=== PATIENT | female | born 1985 | race Caucasian/White ===

== ENCOUNTER 2018-08-02 16:56 | Day surgery (SDC) | payer OTHER ==
[2018-08-02 17:29] VITALS: BMI 32.1
[2018-08-02 17:31] VITALS: BP 108/72; TEMP 98.7
[2018-08-02] MEDS ORDERED: Lactated Ringer's 1,000 ML IV SCH (17:45)
--- NOTE | 2018-08-02 19:07 | PDOC.LDPN ---
Labor & Delivery Progress Note - Subjective Subjective: other (Pt sent from clinic for eval due to concern for possible decels on doppler and discontinuous NST with possible decels to 100 ) - Objective Vital signs reviewed and normal: yes General: NAD Uterine fundus: non tender Dilation: 1 Effacement: 25% Station: -3 FHT: category 1 (110s, mod ye, +accels, no decels ) [place] contractions every: occasional ctx - Assessment (1) 37 weeks gestation of Code(s): Z3A.37 - 37 WEEKS GESTATION OF Current Visit: Yes Status : Acute -: FHTs cat 1 tracing on extended evaluation and BPP 07/05. Reassurance given. Reviewed FKCs. RTC for scheduled appt 1 week.
--- NOTE | 2018-08-02 20:00 | ULT ---
BIOPHYSICAL PROFILE 08/02/18 COMPARISON: None. HISTORY: Possible bradycardia that has now resolved. TECHNIQUE: Multiplanar sauceda scale and color doppler images were obtained in a transabdominal ultrasound. FINDINGS: There is an intrauterine with heart rate of 115 beats per minute. ROSALIND is 23.2 cm, which is normal. The fetus scored 8 of 8 on a biophysical profile which is normal. IMPRESSION: Normal biophysical profile. POS: [facility]
== END 2018-08-02 19:15 | disposition home or self-care (01) ==
LOC: L&D/OP 16:56
PROVIDERS: ATTEND Obstetrics & Gynecology
DX: O76 Abnormality in fetal heart rate and rhythm complicating labor and delivery (principal); Z3A.37 37 weeks gestation of pregnancy; Z79.899 Other long term (current) drug therapy
CPT/HCPCS: 76819; 96360; 96361; 99282

== ENCOUNTER 2018-08-15 20:59 | Inpatient (IN) | payer OTHER ==
--- NOTE | 2018-08-15 20:27 | PDOC.LDHP ---
Labor and Delivery H&P Chief complaint: scheduled induction HPI: 32 yo @ 39w2d by 8w2d CRL who presents for EIOL. Antepartum course benign. Pt has h/o HSV, on suppression and no sx. She also has a 5 cm left ovarian mass with benign markers, possible dermoid. Current gestational age (weeks): 39 Due date: 08/19/18 Dating criteria: first trimester ultrasound Grav: 2 Para: 1 OB History Details: 2010- term without complication, 7lb2oz Current complications: other (H/O HSV Left ovarian mass) Abnormal US findings: No Past Medical History: Denies Current medications: pre- vitamins Previous surgical history: none Allergies/Adverse Reactions: Allergies Allergy/AdvReac Type Severity Reaction Status Date / Time No Known Allergies Allergy Verified 08/02/18 17:32 Social history: none - Physical Exam Vital signs reviewed and normal: yes General: NAD Heart: RRR Lungs: nonlabored breathing Abdomen: gravid Extremeties: no edema FHT: category 1 (120s, mod ye, +accels, no decels currently. Previously baseline in 100s, however, still reactive. This was after Stadol.) [place] contractions every: q 2 min - Vaginal Exam cm dilated: 3 (cephalic; AROM blood tinged clear fluid ) Effacement: 75% Station: -2 - OB Labs Blood type: O RH: negative Antibody Screen: negative HIV: negative RPR: negative HEPSAg: negative 1 hour GCT: negative GBS: positive Urine drug screen: not done Rubella: immune Additional Labs: CF negative - Assessment 39w3d IUP Elective IOL H/O HSV, on suppression GBS+ Left ovarian mass, presumed dermoid - Plan Plan: admit to L&D, cervical ripening (s/p cytotec x1 Now s/p AROM), GBS antibiotic prophylaxis, informed consent obtained, anesthesia consult for pain management
[2018-08-15 21:36] VITALS: BMI 32.1
[2018-08-15] MEDS: Lactated Ringer's 1,000 ML IV SCH (21:45)
[2018-08-15] MEDS ORDERED: Misoprostol 200 MCG TAB PR PRN (22:04)
[2018-08-15] MEDS ORDERED: Methylergonovine 0.2 MG/ML VIAL IM PRN (22:04)
[2018-08-15] MEDS ORDERED: Ondansetron HCl/PF 4 MG/2 ML Vial IVP PRN (22:04)
[2018-08-15] MEDS ORDERED: Acetaminophen 500 MG TAB PO PRN (22:04)
[2018-08-15] MEDS ORDERED: Promethazine HCl 25 MG/ML VIAL IM PRN (22:04)
[2018-08-15] MEDS ORDERED: Lidocaine 1% (PF) 30 ML VIAL SC PRN (22:04)
[2018-08-15] MEDS ORDERED: Butorphanol Tartrate 1 MG/ML VIAL SLOW IVP PRN (22:04)
[2018-08-15] MEDS ORDERED: HYDROcodone/Acetaminophen 5/325 mg Tablet PO PRN (22:04)
[2018-08-15] MEDS ORDERED: Diphenoxylate HCl/Atropine Tablet PO PRN (22:04)
[2018-08-15] MEDS ORDERED: Carboprost 250 MCG/ML AMP IM PRN (22:04)
[2018-08-15] MEDS ORDERED: Ibuprofen 800 MG TAB PO PRN (22:04)
[2018-08-15] MEDS ORDERED: NS / Oxytocin 40 units/1000ml 1,000 ML IV PRN (22:04)
[2018-08-15 22:14] LABS: Mean Corpuscular HGB CONC 35.1 g/dL (32.0-36.0); Mean Corpuscular Hemoglobin 32.8 pg (27.0-31.0); Mean Corpuscular Volume 93.5 fL (78.0-98.0); Mean Platelet Volume 7.7 fL (7.4-10.4); Platelet Count 165 thou/uL (130-400); RBC Distribution Width 12.2 % (11.5-14.5); Red Blood Cell (RBC) Count 3.64 mill/uL (4.20-5.40); White Blood Cell (WBC) Count 6.8 thou/uL (4.8-10.8)
[2018-08-15] MEDS ORDERED: Penicillin G Potassium 5 MILL.UNITS in Sodium Chloride 0.9% 100 ML IVPB SCH (22:15)
[2018-08-15] MEDS: Misoprostol 100 MCG TAB VAG SCH (22:40)
[2018-08-15 22:54] LABS: Syphilis Antibody Nonreactive (Nonreactive); Syphilis Antibody Index 0.04 S/CO (<1.00 Non-Reactive)
[2018-08-15 23:53] LABS: HBSAg Index 0.21 S/CO (0-0.99); HIV (1/2) Antibody/Antigen Non-Reactive (NonReactive); HIV 1/2 INDEX 0.05 S/CO (<1.00); Hep B Surf Ag Non-Reactive S/CO (NonReactive)
[2018-08-16] MEDS: Misoprostol 100 MCG TAB VAG SCH ×4 (01:30→16:39)
[2018-08-16] MEDS: Penicillin G 2.5 MILL.units 2.5 MILL.UNITS in Premix Bag 1 BAG IVPB SCH ×3 (04:40→16:39)
[2018-08-16] MEDS ORDERED: NS w/ Oxytocin 10 units 500 ML IV SCH (06:00)
[2018-08-16] MEDS: Lactated Ringer's 1,000 ML IV SCH ×2 (06:31→09:08)
[2018-08-16] MEDS ORDERED: Dextrose 5%-Lactated Ringers 1,000 ML IV SCH (06:45)
[2018-08-16] MEDS ORDERED: DISCONTINUE ALL PREVIOUS NARCOTICS FS SCH (08:00)
[2018-08-16] MEDS ORDERED: Bupivacaine 0.5% 20 ML, fentaNYL Citrate/PF 400 MCG in Sodium Chloride 0.9% 72 ML EPIDURAL SCH (08:00)
[2018-08-16] MEDS ORDERED: Lactated Ringer's 500 ML IV PRN (09:07)
[2018-08-16] MEDS ORDERED: ePHEDrine/0.9% NaCl/PF SYRINGE 50 mg/10 ml SLOW IVP PRN (09:07)
[2018-08-16] MEDS ORDERED: diphenhydrAMINE 50 MG/ML VIAL IVP PRN (09:07)
[2018-08-16] MEDS ORDERED: Ondansetron HCl/PF 4 MG/2 ML Vial IVP PRN (09:07)
[2018-08-16] MEDS ORDERED: Naloxone HCl 0.4 mg/ml Vial IVP PRN ×2 (09:07)
[2018-08-16] MEDS ORDERED: Acetaminophen 325 MG TAB PO PRN (09:07)
[2018-08-16] MEDS ORDERED: Eucerin (Mineral Oil/Petrolatum,White) 30 gm Jar TOP PRN (09:07)
[2018-08-16] MEDS ORDERED: Promethazine HCl 25 MG/ML VIAL IM PRN (09:07)
[2018-08-16] MEDS ORDERED: fentaNYL Citrate/PF 400 MCG, Bupivacaine 0.5% 20 ML in Sodium Chloride 0.9% 72 ML EPIDURAL SCH (09:15)
[2018-08-16] MEDS ORDERED: Communication Order-Pharmacy FS SCH (09:15)
[2018-08-16] MEDS ORDERED: Lidocaine 1% (PF) 30 ML VIAL ONE (11:51)
[2018-08-16] MEDS ORDERED: NS / Oxytocin 40 units/1000ml 1,000 ML ONE (11:51)
--- NOTE | 2018-08-16 12:56 | PDOC.OPDEL ---
OB Operative/Delivery Note Delivery Dr/Surgeon: Inga Johnston DO Pre-Delivery Diagnosis: elective induction Procedure/Post Delivery Dx: spontaneous vaginal delivery Weeks gestation: 39 Anesthesia: epidural - Findings A Sex: male - 1 min: 9 - 5 min: 9 - Additional Findings/Plan Placenta delivered: spontaneous Repaired Obstetrical Laceration: episiotomy (2nd degree midline made due to bradycardia at delivery and need for expeditious delivery; small periclitoral laceration also repaired) Estimated blood loss: QBL 97 cc Compilations/Other Findings: Infant in CARITO position. Normal placenta Clear AF Post delivery plan: routine recovery
[2018-08-16] MEDS ORDERED: diphenhydrAMINE 25 MG CAP PO PRN (13:04)
[2018-08-16] MEDS ORDERED: Milk Of Magnesia 30 ML UDCUP PO PRN (13:04)
[2018-08-16] MEDS ORDERED: Bisacodyl 10 MG SUPP PR PRN (13:04)
[2018-08-16] MEDS ORDERED: Zolpidem Tartrate 5 MG TAB PO PRN (13:04)
[2018-08-16] MEDS ORDERED: Benzocaine/Menthol 20-0.5% 60 ML CAN TOP PRN (13:04)
[2018-08-16] MEDS ORDERED: Lanolin Ointment 7 GM TUBE TOP PRN (13:04)
[2018-08-16] MEDS ORDERED: NS / Oxytocin 40 units/1000ml 1,000 ML IV SCH (13:04)
[2018-08-16] MEDS ORDERED: traMADol HCl 50 MG TAB PO PRN ×2 (13:04)
[2018-08-16] MEDS: Ibuprofen 800 MG TAB PO SCH (17:13)
[2018-08-16] MEDS: Docusate Calcium (SURFAK) 240 MG CAP PO SCH (21:22)
[2018-08-17] MEDS: Ibuprofen 800 MG TAB PO SCH ×4 (01:26→16:22)
[2018-08-17 06:18] LABS: Mean Corpuscular Hemoglobin 33.2 pg (27.0-31.0); Mean Corpuscular Volume 94.9 fL (78.0-98.0); Mean Platelet Volume 7.7 fL (7.4-10.4); Platelet Count 137 thou/uL (130-400); RBC Distribution Width 12.4 % (11.5-14.5); White Blood Cell (WBC) Count 9.1 thou/uL (4.8-10.8)
--- NOTE | 2018-08-17 08:17 | PDOC.PP ---
Post Progress Note Post Day #: 1 Subjective: Breast feeding. Minimal lochia. Pain controlled with motrin. Voiding. PO intake tolerated: yes Flatus: yes Ambulation: yes Vital Signs (12 hours) Temp Pulse Resp BP BP 08/17/18 07:59 98.3 F 62 18 101/67 08/17/18 05:00 97.7 F 60 18 103/60 08/17/18 00:15 97.6 F 70 18 95/64 Weight Weight 199 lb - Physical Examination General: NAD Cardiovascular: RRR Respiratory: non-labored breathing Abdominal: no distention, appropriately TTP Fundus firm & at: below umbilicus Extremities: negative homans (B) Skin: CS incision dry & intact Neurological: no gross focal deficits Psychiatric: A&Ox3 Result Diagrams: 08/17/18 05:42 Additional Labs: Post Labs Blood Type O NEGATIVE 08/15/18 22:06 Hep Bs Antigen Non-Reactive S/CO (NonReactive) 08/15/18 22:06 (1) Vaginal delivery Code(s): O80 - ENCOUNTER FOR FULL-TERM UNCOMPLICATED DELIVERY Status: Acute - Assessment/Plan PPD1 VSSAF Stable for d/c home when infant ready
[2018-08-17] MEDS ORDERED: valACYclovir 500 MG TAB PO SCH (09:00)
[2018-08-17] MEDS ORDERED: Prenatal Vitamin 1 TAB PO SCH (09:00)
[2018-08-17] MEDS: Docusate Calcium (SURFAK) 240 MG CAP PO SCH (09:24)
[2018-08-17 12:13] VITALS: BP 100/69; TEMP 98.1
== END 2018-08-17 16:50 | disposition home or self-care (01) | DRG 774 ==
LOC: L&D 20:59 → 3SW 08-16 15:31
PROVIDERS: ADMIT Obstetrics & Gynecology; ATTEND Obstetrics & Gynecology
PROC: 10E0XZZ Delivery of Products of Conception, External Approach (ICD-10-PCS; principal; 2018-08-16)
PROC: 0KQM0ZZ Repair Perineum Muscle, Open Approach (ICD-10-PCS; 2018-08-16)
PROC: 0UQJXZZ Repair Clitoris, External Approach (ICD-10-PCS; 2018-08-16)
PROC: 3E033VJ Introduction of Other Hormone into Peripheral Vein, Percutaneous Approach (ICD-10-PCS; 2018-08-16)
PROC: 3E0P7VZ Introduction of Hormone into Female Reproductive, Via Natural or Artificial Opening (ICD-10-PCS; 2018-08-16)
PROC: 0W8NXZZ Division of Female Perineum, External Approach (ICD-10-PCS; 2018-08-16)
PROC: 10907ZC Drainage of Amniotic Fluid, Therapeutic from Products of Conception, Via Natural or Artificial Opening (ICD-10-PCS; 2018-08-16)
PROC: 3E0234Z Introduction of Serum, Toxoid and Vaccine into Muscle, Percutaneous Approach (ICD-10-PCS; 2018-08-16)
DX: O70.1 Second degree perineal laceration during delivery (principal); O98.52 Other viral diseases complicating childbirth; Z37.0 Single live birth; B00.9 Herpesviral infection, unspecified; Z3A.39 39 weeks gestation of pregnancy; O99.824 Streptococcus B carrier state complicating childbirth; D27.1 Benign neoplasm of left ovary
CPT/HCPCS: 36415; 51702; 85027; 85461; 86780; 86850; 86870; 86900; 86901; 87340; 87389; 90384; 96372; J0595; J2001; J2540; J3010; J3490; J7050

== ENCOUNTER 2018-11-22 09:05 | Outpatient (CLI) | payer OTHER ==
[2018-11-22 10:10] LABS: Hemoglobin 14.3 g/dL (12.0-16.0); Mean Corpuscular HGB CONC 34.3 g/dL (32.0-36.0); Mean Corpuscular Hemoglobin 31.2 pg (27.0-31.0); Mean Corpuscular Volume 90.7 fL (78.0-98.0); Mean Platelet Volume 7.7 fL (7.4-10.4); Platelet Count 179 thou/uL (130-400); RBC Distribution Width 11.3 % (11.5-14.5); Red Blood Cell (RBC) Count 4.59 mill/uL (4.20-5.40); White Blood Cell (WBC) Count 4.9 thou/uL (4.8-10.8)
[2018-11-22 10:36] LABS: BHCG - Serum Negative (NEGATIVE); Pregs Control Background? CLEAR/WHITE (CLR/WHITE); Pregs Control Bar Appear? YES (CONTROL BAR)
== END 2018-11-22 09:06 | disposition home or self-care (01) ==
LOC: LABBT 09:05
PROVIDERS: ATTEND Obstetrics & Gynecology
DX: Z01.812 Encounter for preprocedural laboratory examination (principal); N83.202 Unspecified ovarian cyst, left side
CPT/HCPCS: 84703; 85027; 86850; 86900; 86901

== ENCOUNTER 2018-11-23 10:59 | Day surgery (SDC) | payer OTHER ==
[2018-11-22 09:36] VITALS: BMI 26.6
[2018-11-23] MEDS ORDERED: Famotidine/PF 20 mg/2ml Vial ONE (12:13)
[2018-11-23] MEDS ORDERED: Gabapentin 300 MG CAP ONE (12:13)
[2018-11-23] MEDS ORDERED: CeleCOXIB 100 MG CAP ONE (12:14)
[2018-11-23] MEDS ORDERED: Succinylcholine Chloride 20 MG/ML 10 ml SYRINGE FS ONE (12:28)
[2018-11-23] MEDS ORDERED: Scopolamine 1.5 mg/72 hour Patch ONE (12:30)
[2018-11-23] MEDS ORDERED: Fentanyl 100 MCG/2 ML VIAL ONE ×2 (15:45)
[2018-11-23] MEDS ORDERED: Bupivacaine HCl 0.5%/Epinephrine 1:200,000/PF 30 ml Vial ONE (15:50)
[2018-11-23] MEDS ORDERED: Midazolam HCl 2 mg/2 ml Vial ONE (16:04)
[2018-11-23] MEDS ORDERED: Ondansetron PF 4 MG/2 ML Vial ONE ×2 (18:39→20:10)
[2018-11-23] MEDS ORDERED: HYDROcodone/Acetaminophen 5/325 mg Tablet ONE (19:06)
[2018-11-23] MEDS ORDERED: PROPOFOL 200 MG/20 ML VIAL ONE (20:10)
[2018-11-23] MEDS ORDERED: Ketorolac Tromethamine 30 MG/ML VIAL ONE (20:10)
[2018-11-23] MEDS ORDERED: ePHEDrine/0.9% NaCl/PF SYRINGE 50 mg/10 ml ONE (20:10)
[2018-11-23] MEDS ORDERED: Glycopyrrolate 0.2 MG/ML 5 ML SYRINGE ONE (20:10)
[2018-11-23] MEDS ORDERED: Dexamethasone 20 MG/5 ML VIAL ONE (20:10)
[2018-11-23] MEDS ORDERED: Lidocaine 1% PF 5 ML VIAL ONE (20:10)
--- NOTE | 2018-11-24 08:40 | OP ---
DATE OF PROCEDURE: 11/23/2018 PREOPERATIVE DIAGNOSIS: Persistent left ovarian mass with presumed dermoid cyst. POSTOPERATIVE DIAGNOSIS: Left ovarian dermoid cyst. PROCEDURE PERFORMED: Laparoscopic left ovarian cystectomy. INDEPENDENT TRADER: Alma Delia Velez MD COMPLICATIONS: None. ANESTHESIA: General. ESTIMATED BLOOD LOSS: 15 mL. IV FLUIDS: 1000 mL. URINARY OUTPUT: Approximately 15 mL per straight cath preoperatively. FINDINGS: Normal appearing external genitalia, normal vaginal and cervical epithelium, approximately 8 cm uterus, normal appearing uterus, fallopian tubes, and right ovary and left ovary with approximately 3 to 4 cm dermoid cyst. INDICATIONS FOR PROCEDURE: Ms. Mary Kay Young is a 33-year-old female, who is approximately 12 weeks from a normal spontaneous vaginal delivery, who had a known left ovarian cyst throughout her and this was evaluated at her visit and was noted to still be present approximately 4 cm in diameter with complex appearance possible dermoid cyst. The patient was counseled on findings due to persistent and she elected to have a laparoscopic ovarian cystectomy. All risks, benefits, alternatives, and indications were discussed with the patient. DESCRIPTION OF PROCEDURE: The patient was brought to the operating room and she was placed under general anesthesia. The patient was placed in dorsal lithotomy position using Yellofin Stirrups. She was prepped and draped in sterile fashion. An official time-out was performed. A single-sided speculum was placed in the vagina. A Hulka uterine manipulator was inserted. A straight catheterization was performed. Gloves were exchanged, and attention was turned to the abdomen. An umbilical incision was made using the scalpel. A Veress needle was inserted into the peritoneal cavity noting a normal pressure. A 5 mm trocar was inserted into the peritoneal cavity. The patient was placed in Trendelenburg position. Two marketing assistant manager ports were placed, one on the right and one on the left in lower quadrant of the abdomen, both using 5 mm trocar, was placed under direct visualization using local anesthesia. The pelvis was evaluated. Findings as listed above. The left ovary was evaluated and elevated. The dermoid was able to be removed from left ovary with LigaSure device. This was performed until the dermoid was completely removed. Now, there was some spill of the contents of the dermoid into the peritoneal cavity, however, this was minimal. The dermoid cyst was then placed in an EndoCatch bag and the pelvis was irrigated and cleared off all clot and debris. The side where the dermoid had been removed was hemostatic. The EndoCatch bag was then removed through the umbilical port. The umbilical port had been extended to 8 mm size. All instruments were removed. The abdomen was deflated. The trocars were removed. The skin incisions were closed using 4-0 Monocryl and Dermabond. The patient tolerated the procedure well and there were no complications and all counts were correct x2. Job ID: [id number]
== END 2018-11-23 19:20 | disposition home or self-care (01) ==
LOC: SDC 10:59
PROVIDERS: ATTEND Obstetrics & Gynecology
PROC: 0UB14ZZ Excision of Left Ovary, Percutaneous Endoscopic Approach (ICD-10-PCS; principal; 2018-11-23)
DX: D39.12 Neoplasm of uncertain behavior of left ovary (principal); Z79.899 Other long term (current) drug therapy
CPT/HCPCS: 84703; 85027; 86850; 86900; 86901; 88307; 96374; J0131; J0670; J1100; J1885; J2001; J2250; J2405; J2704; J3010; S0028